=== PATIENT | male | born 1980 | race Caucasian/White ===

== ENCOUNTER 2019-10-24 09:50 | Emergency (ER) | payer SELFPAY ==
[2019-10-24 09:58] VITALS: TEMP 99.4
[2019-10-24 10:23] LABS: STREP SCREEN POSITIVE
[2019-10-24] MEDS ORDERED: CLEOCIN HCL300 MG PO (10:51)
[2019-10-24] MEDS ORDERED: ZOFRAN ODT4 MG PO (10:51)
[2019-10-24 12:27] VITALS: BP 109/58; PULSE 102
== END 2019-10-24 12:26 | disposition home or self-care (01) ==
LOC: COL.ER 09:50
PROVIDERS: Physician Assistant
DX: J03.00 Acute streptococcal tonsillitis, unspecified (principal); Z88.0 Allergy status to penicillin
CPT/HCPCS: J1100; J2405; J7030